=== PATIENT | female | born 2000 | race African-American/Black ===

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

== ENCOUNTER 2019-04-18 16:43 | Emergency (ER) | payer OTHER ==
[~2019-04-18] VITALS: Ht 157.5 cm; Wt 60.8 kg
[~2019-04-18 16:43] MED LIST changes: +CIPRO500 MG PO; +LEVSIN/SL0.125 MG SL; +PEPCID40 MG PO; +ZOFRAN4 MG PO
== END 2019-04-18 19:33 | disposition home or self-care (01) ==
LOC: ER 16:43
DX: J06.9 Acute upper respiratory infection, unspecified (principal)

== ENCOUNTER 2020-04-05 17:09 | Emergency (ER) | payer OTHER ==
[~2020-04-05] VITALS: Ht 157.5 cm; Wt 63.0 kg
== END 2020-04-05 19:54 | disposition home or self-care (01) ==
LOC: ER 17:09
DX: O26.892 Other specified pregnancy related conditions, second trimester (principal); R10.2 Pelvic and perineal pain

== ENCOUNTER 2020-05-05 20:43 | Emergency (ER) | payer OTHER ==
[~2020-05-05] VITALS: Ht 157.5 cm; Wt 67.6 kg
[2020-05-05] MEDS ORDERED: PRENATALES (21:04)
== END 2020-05-05 22:56 | disposition home or self-care (01) ==
LOC: ER 20:43
DX: O26.892 Other specified pregnancy related conditions, second trimester (principal); R21 Rash and other nonspecific skin eruption; Z34.82 Encounter for supervision of other normal pregnancy, second trimester